=== PATIENT | male | born 1965 | race Caucasian/White ===

== ENCOUNTER 2019-05-04 07:12 | Emergency (ER) | payer OTHER, BC ==
--- OUTSIDE RECORDS SUMMARY | 2019-05-04 07:20 | XMS REPORT | Continuity of Care Document ---
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 [phone] Problems Active Problems Provider Date Obstructive sleep apnea syndrome Brianne Simmons NP Onset: 03/26/2019 Social History Type Date Description Comments Sex Unknown Allergies, Adverse Reactions, Alerts Description No Known Drug Allergies Medications Description No Active Medications Immunizations Description No Information Available Vital Signs Date Vital Result Comment 03/26/2019 10:09am Weight 335.00 lb Height 74 inches 6'2" BMI (Body Mass Index) 43.0 kg/m2 BP Systolic 168 mmHg BP Diastolic 100 mmHg Heart Rate 77 /min O2 % BldC Oximetry 95 % Body Temperature 99.2 F [place] Score 4 Pain Level 0 06/29/2017 9:40am Weight 335.50 lb Height 74 inches 6'2" BMI (Body Mass Index) 43.1 kg/m2 BP Systolic 153 mmHg right arm BP Diastolic 89 mmHg right arm Heart Rate 62 /min O2 % BldC Oximetry 97 % Room Air Body Temperature 97.4 F Pain Level 0 Results Description No Information Available Procedures Description No Information Available Medical Devices Description No Information Available Encounters Type Date Location Provider Dx Diagnosis Office Visit 03/26/2019 Main Office Brianne Simmons G47.33 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
--- OUTSIDE RECORDS SUMMARY | 2019-05-04 07:20 | XMS REPORT | Continuity of Care Document ---
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 [phone] Problems Description No Information Available Social History Type Date Description Comments Sex [...] Oximetry 95 % Body Temperature 99.2 F [place] Score 4 Pain Level 0 06/29/2017 9:40am [...] Medical Devices Description No Information Available Encounters Description No Information Available Assessments Description No Information Available Plan of Treatment 06/14/2017 - Brianne Simmons NPG47.33 Obstructive sleep apnea (adult) ( pediatric)R06.83 [id number] Sleep disorder, unspecified Functional Status Description No Information Available Mental Status Description No Information Available Referrals Description No Information Available
[2019-05-04 07:34] VITALS: BP 136/73
--- NOTE | 2019-05-04 07:51 | UC ---
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 otc meds ineffective. now with coughing, sore throat " -he has been working out in the cold in [place] all week. no fevers. no sinus pain. no ear pain. -no asthma. reports + wheezing. +ST w/ lots of nasal drainage and PND. -no n/v/d -no rash -no copd. non-smoker -has used mucinex, netti pot, flonase, decongestents, they all give temp relief but not helping to resolve the symptoms. he wants to get this cleared before xmas. - History of Current Complaint Chief Complaint: UCRespiratory Stated Complaint: HEAD CONGESTION Time Seen by Provider: 05/04/19 07:20 Pain Intensity: 98 - Allergies/Home Medications Allergies/Adverse Reactions: Allergies Allergy/AdvReac Type Severity Reaction Status Date / Time No Known Allergies Allergy Verified 05/04/19 07:22 PMH/Surg Hx/FS Hx/Imm Hx Previously Healthy: Yes - Surgical History Surgical History: Yes Surgery Procedure, Year, and Place: right ankle(2011)Nasal,adenoids,and tonsils over 20 years ago; left testicular varicose vein 2008 - Family History Known Family History: Positive: Cardiac Disease, Hypertension, Other - arthritis - mother, both parents alive and well. no asthma. - Social History Alcohol Use: Rare Substance Use Type: None Smoking Status (MU): Never Smoked Tobacco - Immunization History Most Recent Influenza Vaccination: JAN 2016 Review of Systems All Other Systems Reviewed And Are Negative: Yes Constitutional: Positive: Negative Skin: Positive: Negative. Negative: Rash Eyes: Positive: Negative ENT: Positive: Dental Pain - yesterday for a bit, but resolved today, Sore Throat, Nasal Discharge, Sinus Congestion. Negative: Ear Ache, Sinus Pain/ Tenderness Respiratory: Positive: Cough. Negative: Shortness Of Breath Cardiovascular: Positive: Negative. Negative: Palpitations, Chest Pain Gastrointestinal: Positive: Negative Genitourinary: Positive: Negative. Negative: Dysuria Motor: Positive: Negative Neurovascular: Positive: Negative Musculoskeletal: Positive: Negative Neurological: Positive: Negative Psychological: Positive: Negative Is Patient Immunocompromised?: No Physical Exam Triage Information Reviewed: Yes Appearance: Well-Appearing, No Pain Distress, Well-Nourished Vital Signs: Initial Vital Signs Temp 98 F 05/04/19 07:23 Pulse 89 05/04/19 07:23 Resp 20 05/04/19 07:23 BP 136/73 05/04/19 07:23 Pulse Ox 98 05/04/19 07:23 Vital Signs Reviewed: Yes Eye Exam: Normal Eyes: Positive: Conjunctiva Clear ENT Exam: Normal ENT: Positive: Nasal congestion, Nasal drainage, TMs normal, Uvula midline. Negative: Pharyngeal erythema - + PND, TM bulging, TM dull, TM red, Tonsillar swelling, Tonsillar exudate, Hoarse voice, Sinus tenderness Dental Exam: Normal Neck exam: Normal Neck: Positive: Supple, Nontender, No Lymphadenopathy Respiratory Exam: Normal Respiratory: Positive: Chest non-tender, Lungs clear, Normal breath sounds, No respiratory distress, No accessory muscle use. Negative: Crackles, Rhonchi, Stridor Cardiovascular Exam: Normal Cardiovascular: Positive: RRR, No Murmur Abdominal Exam: Normal Abdomen Description: Positive: Nontender, Soft Musculoskeletal Exam: Normal Neurological Exam: Normal Psychological Exam: Normal Skin Exam: Normal Respiratory Course/Dx - Course Course Of Treatment: no e/o bacterial infection at this time. no fever, no sinus pain, lungs are clear w/ no cough throughout my encounter with him. enc to continue w/ netti pot and mucinex. we taklked about the sx he shouild return with, fevers, chills , pain over sinuses for > 10 d, persistent sx. although he is aware that this can last several weeks. he understands that unfortunately there is nothing that will make the symptoms resolve, but need to take his course and treatment is oreinted toward symptom relief. - Differential Dx/Diagnosis Differential Diagnosis/HQI/PQRI: Bronchitis, Laryngitis, Sinusitis, Other - viral uri Provider Diagnosis: Upper respiratory infection, viral Discharge ED - Sign-Out/Discharge Documenting (check all that apply): Patient Departure All imaging exams completed and their final reports reviewed: No Studies - Discharge Plan Condition: Stable Disposition: HOME Patient Education Materials: Cold Symptoms (ED) Referrals: Dyan Anne PA [Primary Care Provider] - 2 Weeks Additional Instructions: You should be re-evaluated sooner if you develop a fever > 101, pain over your face lasting > 10 days or symptoms worsen in general. - Billing Disposition and Condition Condition: STABLE Disposition: Home
== END 2019-05-04 07:59 | disposition home or self-care (01) ==
LOC: UCCORT 07:12
DX: J06.9 Acute upper respiratory infection, unspecified (principal); J02.9 Acute pharyngitis, unspecified
CPT/HCPCS: 99211; G0463